=== PATIENT | female | born 1990 | race Caucasian/White ===

== ENCOUNTER 2016-07-08 10:32 | Emergency (ER) | payer MEDICAID ==
[~2016-07-08] VITALS: Ht 149.9 cm; Wt 65.0 kg
[~2016-07-08 10:32] MED LIST: NUVAMIS VAGINAL
[2016-07-08 10:33] VITALS: BP 133/84; PULSE 107; RESP 15; TEMP 98.3; O2SAT 98
--- NOTE | 2016-07-08 11:23 | PD ---
HPI Chief Complaint: Oral / Dental Pain or Problem Time Seen by Provider: 11:23 Travel History International Travel<30 days: No Contact w/Intl Traveler<30days: No Traveled to known affect area: No History of Present Illness HPI 26-year-old female presents to the ED for evaluation at 2 day history of right lower dental pain. Rated 7/10, radiating into the ear, jaw, and shoulder. She endorses subjective fevers. Patient states that she has had this pain off and on secondary to an impacted wisdom tooth but most recent episode began yesterday morning. She denies difficulties opening the mouth, difficulty swallowing her own secretions. She states that she has an appointment with a dentist later this month. PFSH Past Medical History Diminished Hearing: No : 3 Para: 1 Miscarriage: 1 Social History Alcohol Use: Yes (socially) Tobacco Use: Yes (1-2 CIGS PER DAY) Substance Use: No Allergies-Medications (Allergen,Severity, Reaction): Coded Allergies: Percocet (Verified Allergy, Severe, vomit, 06/25/16) Tramadol (Verified Allergy, Intermediate, NAUSEA/VOMITING, 06/25/16) Reported Meds & Prescriptions Reported Meds & Active Scripts Active Menlo (Hydrocodone-Acetaminophen) 5-325 mg Tab 1 Tab PO Q6H PRN Amoxicillin 500 Mg Tab 500 Mg PO BID 7 Days Nuvaring Vaginal Insert (Etonogestrel-Ethinyl Estradiol Vaginal Insert) 0.120- 0.015 Mg/24 Hr Vagring 1 Applic VAGINAL DIRECTED Review of Systems Except as stated in HPI: all other systems reviewed are Neg Physical Exam Narrative GENERAL: Well-nourished, well-developed white female, lying on the bed in no acute distress. SKIN: Warm and dry. No tenderness to palpation over the right neck, right ear or right shoulder. HEAD: Normocephalic. Atraumatic. EYES: No scleral icterus. No injection or drainage. PERRLA. EOMI. ENT: Pear[place] king tympanic membranes bilaterally. Nasal mucosa is moist. Oropharynx without erythema, edema or exudate. Uvula midline. Airway patent. Floor of mouth is soft. DENTAL: No loose or chipped teeth. No malocclusion. No trismus. The gingiva surrounding tooth #31 is erythematous with a subcentimeter vesicular exudate. NECK: Supple, trachea midline. No JVD or lymphadenopathy. CARDIOVASCULAR: Regular rate and rhythm without murmurs, gallops, or rubs. RESPIRATORY: Breath sounds clear and equal bilaterally. No accessory muscle use. GASTROINTESTINAL: Abdomen soft, non-tender, nondistended. + Bowel sounds MUSCULOSKELETAL: No cyanosis, or edema. Ambulatory, moves extremities spontaneously. BACK: No obvious deformity. No CVA tenderness. Data Data Last Documented VS Vital Signs Date Time Temp Pulse Resp B/P Pulse Ox O2 Delivery O2 Flow Rate FiO2 07/08/16 10:33 98.3 107 15 133/84 98 MDM Medical Decision Making Medical Screen Exam Complete: Yes Emergency Medical Condition: Yes Differential Diagnosis Dental caries versus dental abscess versus less likely deep neck space abscess versus other Narrative Course 26-year-old female presents to the ED for evaluation at 2 day history of right lower dental pain. Rated 7/10, radiating into the ear, jaw, and shoulder, accompanied by subjective fevers. Patient attributes this pain to impacted with some tooth. She denies difficulties opening the mouth, difficulty swallowing her own secretions. She states that she has an appointment with a dentist later this month. Vitals reviewed. Patient is tachycardic on on presentation at the triage desk. Physical exam reveals decent dentition overall. The gingiva surrounding tooth #31 is erythematous. There is a subcentimeter vesicular exudate present. No difficulties opening closing the mouth. The floor of the mouth is soft. The airway is patent. Uvula is midline. This is dental abscess. Patient was provided with prescription for amoxicillin 500 mg twice a day 7 days. She is also prescribed a brief course of Menlo which she states she can take without any problems. She is instructed to take the medication as prescribed, follow up with the dentist as planned. She indicated understanding of instructions. She is amenable to plan of care. She is stable and discharged home. Diagnosis Primary Impression: Dental abscess Referrals: Dentist Patient Instructions: Dental Abscess (ED), General Instructions Additional Instructions: Take all antibiotics as prescribed, even if symptoms resolve. Take pain medication as prescribed. Do not operate a vehicle while taking pain medications. Follow-up with the dentist as planned. Return to the ED for any urgent or emergent medical condition. Med/Other Pt SpecificInfo: Prescription(s) given Scripts Hydrocodone-Acetaminophen (Menlo)5-325 mg Tab1 Tab PO Q6H PRN (PAIN) #12 TAB Ref 0 Prov:Pilo Leach MD 07/08/16 Amoxicillin 500 Mg [id number] Mg PO BID 7 Days Ref 0 Prov:Pilo Leach MD 07/08/16 Disposition: 01 DISCHARGE HOME Condition: Stable Prerna Osman Jul 08, 2016 11:23
[2016-07-08] MEDS ORDERED: AMOX500T PO (11:36)
[2016-07-08] MEDS ORDERED: NORC5TAB PO (11:36)
[2016-07-15] MEDS ORDERED: NUVAMIS VAGINAL (11:24)
[2016-07-15] MEDS ORDERED: AUGM875T PO (11:25)
== END 2016-07-08 12:17 | disposition home or self-care (01) ==
LOC: NETRI 10:32
DX: K04.7 Periapical abscess without sinus (principal); F17.210 Nicotine dependence, cigarettes, uncomplicated
CPT/HCPCS: 99283

== ENCOUNTER 2016-10-08 11:00 | Emergency (ER) | payer MEDICAID ==
[~2016-10-08] VITALS: Ht 149.9 cm; Wt 67.2 kg
[~2016-10-08 11:00] MED LIST changes: +AUGM875T PO; +NORC5TAB PO
[2016-10-08 11:08] VITALS: BP 148/76; PULSE 92; RESP 18; TEMP 98.9; O2SAT 99
--- NOTE | 2016-10-08 11:38 | PD ---
HPI Chief Complaint: Oral / Dental Pain or Problem Time Seen by Provider: 11:33 Travel History International Travel<30 days: No Contact w/Intl Traveler<30days: No Traveled to known affect area: No History of Present Illness HPI 26-year-old female presents to the emergency department for evaluation of right ear pain and right lower dental pain. Patient states that she has a bad tooth in her right lower wisdom teeth and it intermittently causes her pain, this recent flareup has been going on for several days. States that there is some swelling and redness around the tooth. States that she has had worsening right ear pain and popping for 2 days. States she has a history of recurrent ear infections. Denies any fever, chills, nausea, vomiting, dizziness, sore throat , cough or cold symptoms, facial swelling, difficulty swallowing. Denies , last menstrual period 3 weeks ago. No other complaints. PFSH Past Medical History Medical History: Denies Significant Hx Diminished Hearing: No ?: Not LMP: 09-15-16 : 3 Para: 1 Miscarriage: 1 Social History Alcohol Use: Yes (socially) Tobacco Use: Yes (1-2 CIGS PER DAY) Substance Use: No Allergies-Medications (Allergen,Severity, Reaction): Coded Allergies: Percocet (Verified Allergy, Severe, vomit, 10/08/16) Tramadol (Verified Allergy, Intermediate, NAUSEA/VOMITING, 10/08/16) Reported Meds & Prescriptions Reported Meds & Active Scripts Active No Active Prescriptions or Reported Medications Review of Systems Except as stated in HPI: all other systems reviewed are Neg Physical Exam Narrative GENERAL: Well-nourished and well-developed pleasant female patient in no acute distress who is nontoxic appearing. SKIN: Warm and dry. HEAD: Normocephalic and atraumatic. No facial swelling. EYES: No injection, drainage, or hyphema noted. PERRLA. EOMI. ENT: No nasal drainage noted. Oropharynx is clear. The left tympanic membranes within normal limits. The right tympanic membrane has purulent effusion and patient has tenderness to palpation of the tragus. Ear canals are within normal limits. DENTAL: Right lower posterior molar tooth #32 with dental caries, teeth #30 and 31 are status post extraction. There is some erythema of the gingiva in this region with tenderness to palpation. No abscess formation, discharge or drainage. NECK: Supple and the trachea is midline. No lymphadenopathy is noted throughout the cervical chains. CARDIOVASCULAR: Regular rate and rhythm. RESPIRATORY: Breath sounds are equal bilaterally with no accessory muscle use, wheezing, rhonchi, or crackles. GASTROINTESTINAL: Abdomen is soft, non-tender, and nondistended. MUSCULOSKELETAL: No obvious deformities, swelling, cyanosis, or ecchymosis is present throughout the upper and lower extremities. Patient has full range of motion without any signs of neurovascular compromise. NEUROLOGICAL: Awake, alert, and oriented. Normal speech and gait. Cranial nerves are grossly intact. Data Data Last Documented VS Vital Signs Date Time Temp Pulse Resp B/P Pulse Ox O2 Delivery O2 Flow Rate FiO2 10/08/16 11:08 98.9 92 18 148/76 99 MDM Medical Decision Making Medical Screen Exam Complete: Yes Emergency Medical Condition: Yes Differential Diagnosis Dental infection versus dental caries versus gingivitis versus otitis media Narrative Course 26-year-old female presents to the emergency department for evaluation of dental pain and ear pain. Patient is afebrile, vital signs are stable. She has a mild ear infection and slight dental infection as well. Patient will be placed on amoxicillin. Advised to follow up as an outpatient with her primary care and with her dentist. Patient verbalizes understanding and agreement with treatment plan. Diagnosis Primary Impression: Otitis media Qualified Code: H65.04 - Recurrent acute serous otitis media of right ear Additional Impression: Dental infection Referrals: Dentist Primary Care Physician Patient Instructions: General Instructions Additional Instructions: Take [id number] Claritin. Take medication as prescribed with food and a full glass of water. Follow-up with your Primary Care Physician. Return to the ED for any acute worsening of symptoms. Med/Other Pt SpecificInfo: Prescription(s) given Scripts No Active Prescriptions or Reported Meds Disposition: DISCHARGE HOME Condition: Stable Maribell Morales October 08, 2016 11:38
[2016-10-08] MEDS ORDERED: AMOX875T2 PO (11:39)
== END 2016-10-08 12:20 | disposition home or self-care (01) ==
LOC: PHEFT 11:00
DX: H65.04 Acute serous otitis media, recurrent, right ear (principal); K04.7 Periapical abscess without sinus; Z72.0 Tobacco use
CPT/HCPCS: 99282

== ENCOUNTER 2016-11-04 08:56 | Emergency (ER) | payer MEDICAID ==
[~2016-11-04] VITALS: Ht 149.9 cm; Wt 65.5 kg
[~2016-11-04 08:56] MED LIST changes: +AMOX875T2 PO; -AUGM875T PO; -NORC5TAB PO; -NUVAMIS VAGINAL
[2016-11-04 09:03] VITALS: BP 116/79; PULSE 105; RESP 16; TEMP 98.4; O2SAT 99
[2016-11-04] MEDS ORDERED: SODIUM CHLOR 0.9% 1000 ML INJ 1,000 ML IV SCH (09:18)
[2016-11-04] MEDS ORDERED: LIDOCAINE VISCOUS 2% SOLN 15 ML UDC PO ONE (09:30)
[2016-11-04] MEDS ORDERED: SODIUM CHLOR 0.9% 1000 ML INJ 1,000 ML IV ONE (09:30)
[2016-11-04] MEDS ORDERED: ALUMINUM/MAGNESIUM/SIMETH 30 ML CUP PO ONE (09:30)
[2016-11-04] MEDS ORDERED: SODIUM CHLORIDE 0.9% FLUSH 10 ML FLUSH IV FLUSH PRN (09:30)
[2016-11-04] MEDS ORDERED: ONDANSETRON HCL 4 MG/2 ML VIAL IVP ONE (09:30)
--- NOTE | 2016-11-04 09:32 | PD ---
HPI Chief Complaint: GI Complaint Time Seen by Provider: 09:10 Travel History International Travel<30 days: No Contact w/Intl Traveler<30days: No Traveled to known affect area: No History of Present Illness HPI This is a 26-year-old female 4 para 3 last menstruation just over 10 weeks prior arrives complaining of nausea and vomiting for about 1 day. No diarrhea. She reports this happens fairly frequently for her and is typically accompanied by dehydration. She was unable to work today on account of the nausea and vomiting. Any eating or drinking causes vomiting, including drinking water. She last ate pizza and milk before her symptoms began. She has had no fever. She describes a generalized cramping abdominal sensation. She notes she is however has yet to follow up with Dr Hay of obstetrics. She denies vaginal bleeding/discharge. She has no urinary frequency dysuria. Her son has similar symptoms. PFSH Past Medical History Medical History: Denies Significant Hx Diminished Hearing: No Migraines: Yes Tetanus Vaccination: > 5 Years Influenza Vaccination: No ?: LMP: 08/15/16 : 4 Para: 3 Miscarriage: 0 : 0 Past Surgical History Surgical History: No Previous Surgery Social History Alcohol Use: No Tobacco Use: No Substance Use: No Allergies-Medications (Allergen,Severity, Reaction): Coded Allergies: Percocet (Verified Allergy, Severe, vomit, 11/04/16) Tramadol (Verified Allergy, Intermediate, NAUSEA/VOMITING, 11/04/16) Reported Meds & Prescriptions Reported Meds & Active Scripts Active Macrobid (Nitrofurantoin Monohydrate Macrocrystals) 100 Mg Capsule 100 Mg PO BID 5 Days Plus Iron 29-1 mg ( Vit-Iron Carbonyl) 1 Tab Tab 1 Tab PO DAILY Zofran Odt (Ondansetron Odt) 4 Mg Tab 4 Mg SL Q8HR PRN Review of Systems Except as stated in HPI: all other systems reviewed are Neg General / Constitutional: No: Fever Physical Exam Narrative GENERAL: 26-year-old female pleasant well-nourished well-developed mild distress SKIN: Focused skin assessment warm/dry. HEAD: Atraumatic. Normocephalic. EYES: Pupils equal and round. No scleral icterus. No injection or drainage. ENT: No nasal bleeding or discharge. Mucous membranes pink and moist. NECK: Trachea midline. No JVD. CARDIOVASCULAR: Regular rate and rhythm. No murmur appreciated. RESPIRATORY: No accessory muscle use. Clear to auscultation. Breath sounds equal bilaterally. GASTROINTESTINAL: Soft. No focus of abdominal tenderness. MUSCULOSKELETAL: No obvious deformities. No clubbing. No cyanosis. No edema. NEUROLOGICAL: Awake and alert. No obvious cranial nerve deficits. Motor grossly within normal limits. Normal speech. PSYCHIATRIC: Appropriate mood and affect; insight and judgment normal. Data Data Last Documented VS Vital Signs Date Time Temp Pulse Resp B/P Pulse Ox O2 Delivery O2 Flow Rate FiO2 11/04/16 09:53 100 Room Air 11/04/16 09:03 98.4 105 16 116/79 Vital signs reviewed Orders Urinalysis - C+S If Indicated (11/04/16 09:18) Iv Access Insert/Monitor (11/04/16 09:18) Ecg Monitoring (11/04/16 09:18) Oximetry (11/04/16 09:18) Ondansetron Inj (Zofran Inj) (11/04/16 09:30) Sodium Chlor 0.9% 1000 Ml Inj (Ns 1000 M (11/04/16 09:18) Sodium Chloride 0.9% Flush (Ns Flush) (11/04/16 09:30) Al-Mag Hy-Si 40-40-4 Mg/Ml Liq (Mag-Al P (11/04/16 09:30) Lidocaine 2% Viscous (Xylocaine 2% Visco (11/04/16 09:30) Ed Urine Pregnancytest Poc (11/04/16 09:18) Sodium Chlor 0.9% 1000 Ml Inj (Ns 1000 M (11/04/16 09:30) Ed Poc Ultrasound (11/04/16 ) Beta Hcg (Quant/Titer) (11/04/16 09:32) Urine Culture (11/04/16 09:45) Labs Laboratory Tests Test 11/04/16 09:45 Urine Collection Type CLEAN CATCH Urine Color YELLOW Urine Turbidity CLEAR Urine pH 6.0 Urine Specific [place] 1.026 Urine Protein 30 mg/dL Urine Glucose (UA) NEG mg/dL Urine Ketones 80 OR GREATER mg/dL Urine Occult Blood NEG Urine Nitrite NEG Urine Bilirubin NEG Urine Leukocyte Esterase NEG Urine WBC 0-2 /hpf Urine Squamous Epithelial > 8 /hpf Cells Urine Bacteria MOD /hpf Urine Mucus FEW /lpf Microscopic Urinalysis Comment CULTURE INDICATED Urine Collection Time 09:45 Human Chorionic Gonadotropin, [address] MIU/ML Quant MDM Medical Decision Making Medical Screen Exam Complete: Yes Emergency Medical Condition: Yes Medical Record Reviewed: Yes Differential Diagnosis Constipation, Gastritis, Acute Cholecystitis, Biliary Colic, Pancreatitis, DSOUZA , Hepatitis, Bowel Obstruction, Cystitis, Mesenteric Ischemia, AAA, Appendicitis , Renal Stone/Hydronephrosis, GERD, perforated viscous Narrative Course Urinalysis reveals ketonuria area with bacteriuria Beta 56,489 The patient is resting comfortably and feels better, is alert and in no distress. The patients results and examination findings were discussed. The repeat examination is unremarkable and benign. The history, exam, diagnostic testing, and current condition do not suggest any significant pathology to warrant further testing, continued ED treatment, admission, or surgical evaluation at this point. The vital signs have been stable. The patient does not have uncontrollable pain, intractable vomiting, or other significant symptoms. The patient's condition is stable and appropriate for discharge. The patient will pursue further outpatient evaluation with a primary care physician or other designated or consulting physician as indicated in the discharge instructions. The patient expressed understanding and was agreeable with this plan. Diagnosis Primary Impression: Nausea & vomiting Qualified Code: R11.2 - Intractable vomiting with nausea, unspecified vomiting type Additional Impressions: IUP (intrauterine ), incidental Asymptomatic bacteriuria Referrals: [facility] 2 days Additional Instructions: You have a choice when it comes to health care, and we are glad that you chose [facility]. Hopefully, we have met your expectations on today's visit. You are welcome to return to [facility] at any time, as we are committed to meeting the health care needs of our community. Med/Other Pt SpecificInfo: Prescription(s) given Scripts Nitrofurantoin Monohydrate Macrocrystals (Macrobid)100 Mg [id number] Mg PO BID 5 Days Ref 0 Prov:Checo Juan MD 11/04/16 Vit-Iron Carbonyl ( Plus Iron 29-1 mg)1 Tab Tab1 Tab PO DAILY #90 TAB Ref 3 Prov:Checo Juan MD 11/04/16 Ondansetron Odt (Zofran Odt)4 Mg Tab4 Mg SL Q8HR PRN (Nausea/Vomiting) #10 TAB Ref 0 Prov:Checo Juan MD 11/04/16 Disposition: 01 DISCHARGE HOME Condition: Stable hCeco Juan MD November 04, 2016 09:32
[2016-11-04 09:53] VITALS: O2SAT 100
[2016-11-04 09:55] LABS: BLOOD, URINE NEG (NEG); GLUCOSE,URINE NEG (NEG); NITRITE,URINE NEG (NEG)
[2016-11-04 10:04] LABS: KETONE, URINE 80 OR GREATER mg/dL (NEG); METHOD OF COLLECTION CLEAN CATCH; SQUAMOUS EPITHELIAL CELL URINE > 8 /hpf (0-5); URINE COLOR YELLOW (YELLW/STRAW); WBC, URINE 0-2 /hpf (0-5)
[2016-11-04 10:05] LABS: BACTERIA, URINE MOD /hpf; MUCUS URINE FEW /lpf (OCC)
[2016-11-04 10:08] LABS: COMMENT (UR) CULTURE INDICATED; CULTURE IF INDICATED CULTURE INDICATED
[2016-11-04] MEDS ORDERED: ZOFR4TAB3 SL (10:10)
[2016-11-04] MEDS ORDERED: PREN29TA PO (10:11)
[2016-11-04 10:26] LABS: BETA HCG QUANT 56489 MIU/ML (0-5)
[2016-11-04] MEDS ORDERED: MACR100C2 PO (10:37)
[2016-11-04 11:40] VITALS: BP 118/74
== END 2016-11-04 11:50 | disposition home or self-care (01) ==
LOC: PHED 08:56
DX: O21.9 Vomiting of pregnancy, unspecified (principal); R82.71 Bacteriuria; Z34.81 Encounter for supervision of other normal pregnancy, first trimester
CPT/HCPCS: 81001; 84702; 84703; 87086; 96361; 96374; 99284; J2405; J7030

== ENCOUNTER 2017-03-12 11:39 | Emergency (ER) | payer MEDICAID ==
[~2017-03-12] VITALS: Ht 149.9 cm; Wt 70.9 kg
[~2017-03-12 11:39] MED LIST changes: -AMOX875T2 PO; +MACR100C2 PO; +PREN29TA PO; +ZOFR4TAB3 SL
[2017-03-12 11:43] VITALS: BP 129/60; PULSE 109; RESP 18; TEMP 98
--- NOTE | 2017-03-12 12:03 | PD ---
HPI Chief Complaint: GI Complaint Time Seen by Provider: 11:52 Travel History International Travel<30 days: No Contact w/Intl Traveler<30days: No Traveled to known affect area: No History of Present Illness HPI here at 32 weeks GA presents to the er with N/V/D since last night. Also complaints of BEEBE bifrontal which is mild. Endorses diffuse abdominal pain as well but she states she cannot differentiate between the pain and the baby kicking. She continues to smoke during . States symptoms are moderate , waxing and waning. PFSH Past Medical History Diminished Hearing: No Migraines: Yes ?: LMP: jul 18 : 4 Para: 3 Miscarriage: 0 : 0 Social History Alcohol Use: No Tobacco Use: No Substance Use: No Allergies-Medications (Allergen,Severity, Reaction): Coded Allergies: acetaminophen (Unverified Allergy, Severe, vomit, 03/12/17) oxycodone (Unverified Allergy, Severe, vomit, 03/12/17) tramadol (Unverified Allergy, Intermediate, NAUSEA/VOMITING, 03/12/17) Reported Meds & Prescriptions Reported Meds & Active Scripts Active Plus Iron 29-1 mg ( Vit-Iron Carbonyl) 1 Tab Tab 1 Tab PO DAILY Review of Systems Except as stated in HPI: all other systems reviewed are Neg Physical Exam Narrative GENERAL: Well-developed well-nourished in no obvious distress. SKIN: Focused skin assessment warm/dry. HEAD: Atraumatic. Normocephalic. EYES: Pupils equal and round. No scleral icterus. No injection or drainage. ENT: No nasal bleeding or discharge. Mucous membranes pink and moist. NECK: Trachea midline. No JVD. CARDIOVASCULAR: Regular rate and rhythm. No murmur appreciated. RESPIRATORY: No accessory muscle use. Clear to auscultation. Breath sounds equal bilaterally. GASTROINTESTINAL: Abdomen soft, non-tender, gravid abdomen. Hepatic and splenic margins not palpable. No rebound or percussive tenderness. No CVA tenderness. MUSCULOSKELETAL: No obvious deformities. No clubbing. No cyanosis. No edema. NEUROLOGICAL: Awake and alert. No obvious cranial nerve deficits. Motor grossly within normal limits. Normal speech. PSYCHIATRIC: Appropriate mood and affect; insight and judgment normal. Data Data Last Documented VS Vital Signs Date Time Temp Pulse Resp B/P (MAP) Pulse Ox O2 Delivery O2 Flow Rate FiO2 03/12/17 14:58 102 20 99/58 (72) 94 03/12/17 11:43 98.0 Orders Orders Ed Poc Ultrasound (03/12/17 ) Complete Blood Count With Diff (03/12/17 12:06) Comprehensive Metabolic Panel (03/12/17 12:06) Lipase (03/12/17 12:06) Iv Access Insert/Monitor (03/12/17 12:06) Ecg Monitoring (03/12/17 12:06) Oximetry (03/12/17 12:06) Sodium Chloride 0.9% Flush (Ns Flush) (03/12/17 12:15) Acetaminophen (Tylenol) (03/12/17 12:15) Ondansetron Inj (Zofran Inj) (03/12/17 12:15) Sodium Chlor 0.9% 1000 Ml Inj (Ns 1000 M (03/12/17 12:15) Urinalysis - C+S If Indicated (03/12/17 12:28) Labs Laboratory Tests Test 03/12/17 12:15 03/12/17 13:20 White Blood Count 9.8 TH/MM3 Red Blood Count 3.36 MIL/MM3 Hemoglobin 10.1 GM/DL Hematocrit 29.2 % Mean Corpuscular Volume 86.9 FL Mean Corpuscular Hemoglobin 29.9 PG Mean Corpuscular Hemoglobin Concent 34.4 % Red Cell Distribution Width 11.9 % Platelet Count 243 TH/MM3 Mean Platelet Volume 7.6 FL Neutrophils (%) (Auto) 75.9 % Lymphocytes (%) (Auto) 15.1 % Monocytes (%) (Auto) 6.6 % Eosinophils (%) (Auto) 0.6 % Basophils (%) (Auto) 1.8 % Neutrophils # (Auto) 7.4 TH/MM3 Lymphocytes # (Auto) 1.5 TH/MM3 Monocytes # (Auto) 0.6 TH/MM3 Eosinophils # (Auto) 0.1 TH/MM3 Basophils # (Auto) 0.2 TH/MM3 CBC Comment DIFF FINAL Differential Comment Blood Urea Nitrogen 6 MG/DL Creatinine 0.29 MG/DL Random Glucose 114 MG/DL Total Protein 6.1 GM/DL Albumin 2.6 GM/DL Calcium Level 8.1 MG/DL Alkaline Phosphatase 75 U/L Aspartate Amino Transf (AST/SGOT) 16 U/L Alanine Aminotransferase (ALT/SGPT) 20 U/L Total Bilirubin 0.3 MG/DL Sodium Level 136 MEQ/L Potassium Level 3.3 MEQ/L Chloride Level 104 MEQ/L Carbon Dioxide Level 21.4 MEQ/L Anion Gap 11 MEQ/L Estimat Glomerular Filtration Rate 280 ML/MIN Lipase 93 U/L Urine Collection Type CLEAN CATCH Urine Color YELLOW Urine Turbidity CLEAR Urine pH 6.5 Urine Specific [place] 1.005 Urine Protein NEG mg/dL Urine Glucose (UA) NEG mg/dL Urine Ketones NEG mg/dL Urine Occult Blood NEG Urine Nitrite NEG Urine Bilirubin NEG Urine Leukocyte Esterase NEG Urine Squamous Epithelial Cells 0-5 /hpf Microscopic Urinalysis Comment CULT NOT INDICATED MDM Medical Decision Making Medical Screen Exam Complete: Yes Emergency Medical Condition: Yes Differential Diagnosis Headache, preeclampsia, dehydration, gastroenteritis, labor. Narrative Course Patient workup in the emergency department, labs UA negative. Given normal saline, Zofran, given nondescript pain recommended for an STD, discussed with the OB hospitalist Dr. Riggins who accepts to OB ED for consideration of NST. Procedures Procedure Narrative Bedside ultrasound abdomen: Ultrasound consistent with a 29 week gestational age single intrauterine , heart tones to 154 by M-mode. No gross abnormality seen. Positive motion. Diagnosis Primary Impression: Abdominal pain affecting Disposition: 70 TRANSFER TO OTHER FACILITY Condition: Stable Vamshi Campbell MD Mar 12, 2017 12:03
[2017-03-12] MEDS ORDERED: ACETAMINOPHEN 500 MG CPLT PO ONE (12:15)
[2017-03-12] MEDS ORDERED: SODIUM CHLORIDE 0.9% FLUSH 10 ML FLUSH IV FLUSH PRN (12:15)
[2017-03-12] MEDS ORDERED: SODIUM CHLOR 0.9% 1000 ML INJ 1,000 ML IV ONE (12:15)
[2017-03-12] MEDS ORDERED: ONDANSETRON HCL 4 MG/2 ML VIAL IV PUSH ONE (12:15)
[2017-03-12 12:18] VITALS: O2SAT 96
[2017-03-12 12:24] VITALS: BP 107/71; PULSE 95; RESP 20; O2SAT 97
[2017-03-12 12:24] LABS: AUTOMATED NEUTROPHIL # 7.4 TH/MM3 (1.8-7.7); BASOPHIL # 0.2 TH/MM3 (0-0.2); BASOPHIL % 1.8 % (0.0-2.0); EOSINOPHIL # 0.1 TH/MM3 (0-0.4); EOSINOPHIL % 0.6 % (0.0-4.0); HEMATOCRIT 29.2 % (35.0-46.0); LYMPH % 15.1 % (9.0-44.0); LYMPHOCYTE # 1.5 TH/MM3 (1.0-4.8); MEAN CELL VOLUME 86.9 FL (80.0-100.0); MEAN CORPUSCULAR HEMOGLOBIN 29.9 PG (27.0-34.0); MEAN CORPUSCULAR HGB CONC 34.4 % (32.0-36.0); MONO % 6.6 % (0.0-8.0); NEUT % 75.9 % (16.0-70.0); PLATELET COUNT 243 TH/MM3 (150-450); RED BLOOD COUNT 3.36 MIL/MM3 (4.00-5.30); RED CELL DISTRIBUTION WIDTH 11.9 % (11.6-17.2); WHITE BLOOD COUNT 9.8 TH/MM3 (4.0-11.0)
[2017-03-12 12:27] LABS: HEMO FLAGS DIFF FINAL
[2017-03-12 12:40] LABS: CHLORIDE 104 MEQ/L (98-107); POTASSIUM 3.3 MEQ/L (3.5-5.1); SODIUM (NA) 136 MEQ/L (136-145)
[2017-03-12 12:44] LABS: ANION GAP 11 MEQ/L (5-15); BICARBONATE 21.4 MEQ/L (21.0-32.0); BLOOD UREA NITROGEN 6 MG/DL (7-18)
[2017-03-12 12:47] LABS: ALT (GPT) 20 U/L (10-53); AST (GOT) 16 U/L (15-37); GLOMERULAR FILTRATION RATE 280 ML/MIN (>89)
[2017-03-12 12:48] LABS: TOTAL BILIRUBIN ADULT 0.3 MG/DL (0.2-1.0)
[2017-03-12 12:50] LABS: ALKALINE PHOSPHATASE 75 U/L (45-117)
[2017-03-12 13:19] VITALS: BP 116/51; PULSE 75; RESP 20; O2SAT 100
[2017-03-12 13:28] LABS: BLOOD, URINE NEG (NEG); GLUCOSE,URINE NEG (NEG); KETONE, URINE NEG (NEG); NITRITE,URINE NEG (NEG); PH, URINE 6.5 (5.0-8.5)
[2017-03-12 13:38] LABS: COMMENT (UR) CULT NOT INDICATED; CULTURE IF INDICATED CULT NOT INDICATED; METHOD OF COLLECTION CLEAN CATCH; SQUAMOUS EPITHELIAL CELL URINE 0-5 /hpf (0-5); URINE COLOR YELLOW (YELLW/STRAW)
[2017-03-12 14:58] VITALS: BP 99/58; PULSE 102; RESP 20; O2SAT 94
--- NOTE | 2017-03-12 17:49 | PD ---
HPI Chief Complaint nausea, vomiting diarrhea 1 day 32 week IUP Date Seen: Mar 12, 2017 Time Seen: 17:15 Travel History International Travel<30 Days: No Contact w/Intl Traveler<30Days: No Known Affected Area: No History of Present Illness HPI Pt is a 27 yo who presents at 29 weeks and 6 days. She reports nausea and vomiting with diarrhea starting last night. Pt receives care with Dr Paolo Cao at [facility]. previously uncomplicated. Denies headache, or vision changes. No proteinuria noted in ER. She was seen in ER at [place], today with these complaints. She reports active movements. No fevers, or chills. No vaginal bleeding or leaking. Weeks Gestation: 29 Para: 3 : 4 History Past Medical History Medical History: Denies Significant Hx Obstetric History Obstetric History 3 uncomplicated term vaginal deliveries. Past Surgical History Surgical History: No Previous Surgery Social History Alcohol Use: No Tobacco Use: Yes (1/2 PPD) Substance Abuse: No Allergies-Medications (Allergen,Severity, Reaction): Coded Allergies: acetaminophen (Unverified Allergy, Severe, vomit, 03/12/17) oxycodone (Unverified Allergy, Severe, vomit, 03/12/17) tramadol (Unverified Allergy, Intermediate, NAUSEA/VOMITING, 03/12/17) Home Meds Active Scripts Vit-Iron Carbonyl ( Plus Iron 29-1 mg) 1 Tab Tab, 1 TAB PO DAILY for Nutritional Supplement, #90 TAB 3 Refills Prov:Checo Juan MD 11/04/16 Discontinued Scripts Nitrofurantoin Monohydrate Macrocrystals (Macrobid) 100 Mg Capsule, 100 MG PO BID for Infection for 5 Days, CAP 0 Refills Prov:Checo Juan MD 11/04/16 Ondansetron Odt (Zofran Odt) 4 Mg Tab, 4 MG SL Q8HR Y for Nausea/Vomiting, #10 TAB 0 Refills Prov:Checo Juan MD 11/04/16 Review of Systems Except as stated in HPI: all other systems reviewed are Neg Physical Exam Vital Signs Date Time Temp Pulse Resp B/P (MAP) Pulse Ox O2 Delivery O2 Flow Rate FiO2 03/12/17 14:58 102 20 99/58 (72) 94 03/12/17 13:19 75 20 116/51 (72) 100 03/12/17 12:24 95 20 107/71 (83) 97 03/12/17 12:18 96 03/12/17 11:43 98.0 109 18 129/60 (83) Narrative GENERAL: Well-nourished, well-developed patient. SKIN: Warm and dry. HEAD: Normocephalic and atraumatic. EYES: No scleral icterus. No injection or drainage. ENT: No nasal drainage noted. Mucous membranes pink. Airway patent. NECK: Supple, trachea midline. No JVD. CARDIOVASCULAR: Regular rate and rhythm without murmurs, gallops, or rubs. RESPIRATORY: Breath sounds equal bilaterally. No accessory muscle use. BREASTS: Bilateral exam showed no masses , no retractions, no nipple discharge. ABDOMEN/GI: Abdomen soft, non-tender, bowel sounds present, no rebound, no guarding Gravid to [30] weeks size Fundal Height: [30cm-] GENITOURINARY: External Genitalia: intact and normal in appearance BUS glands: [-] Cervix: [-] not examined Dilatation: [-] Effacement: [-] Station: [-] Presentation: [-] Membranes: [intact or ruptured] Uterine Contractions: [-] FHT's: Category: [1] Baseline: [130s-] Reactive: [YES-] Variability: [moderate-] Decels: [none] EXTREMITIES: No cyanosis or edema. BACK: Nontender without obvious deformity. No CVA tenderness. NEUROLOGICAL: Awake and alert. Motor and sensory grossly within normal limits. Five out of 5 muscle strength in all muscle groups. Normal speech. Data Data Vital Signs Reviewed: Yes Orders Orders Ed Poc Ultrasound (03/12/17 ) Complete Blood Count With Diff (03/12/17 12:06) Comprehensive Metabolic Panel (03/12/17 12:06) Lipase (03/12/17 12:06) Iv Access Insert/Monitor (03/12/17 12:06) Ecg Monitoring (03/12/17 12:06) Oximetry (03/12/17 12:06) Sodium Chloride 0.9% Flush (Ns Flush) (03/12/17 12:15) Acetaminophen (Tylenol) (03/12/17 12:15) Ondansetron Inj (Zofran Inj) (03/12/17 12:15) Sodium Chlor 0.9% 1000 Ml Inj (Ns 1000 M (03/12/17 12:15) Urinalysis - C+S If Indicated (03/12/17 12:28) Group B Strep: Negative Labs Laboratory Tests Test 03/12/17 12:15 03/12/17 13:20 White Blood Count 9.8 Red Blood Count 3.36 Hemoglobin 10.1 Hematocrit 29.2 Mean Corpuscular Volume 86.9 Mean Corpuscular Hemoglobin 29.9 Mean Corpuscular Hemoglobin Concent 34.4 Red Cell Distribution Width 11.9 Platelet Count 243 Mean Platelet Volume 7.6 Neutrophils (%) (Auto) 75.9 Lymphocytes (%) (Auto) 15.1 Monocytes (%) (Auto) 6.6 Eosinophils (%) (Auto) 0.6 Basophils (%) (Auto) 1.8 Neutrophils # (Auto) 7.4 Lymphocytes # (Auto) 1.5 Monocytes # (Auto) 0.6 Eosinophils # (Auto) 0.1 Basophils # (Auto) 0.2 CBC Comment DIFF FINAL Differential Comment Blood Urea Nitrogen 6 Creatinine 0.29 Random Glucose 114 Total Protein 6.1 Albumin 2.6 Calcium Level 8.1 Alkaline Phosphatase 75 Aspartate Amino Transf (AST/SGOT) 16 Alanine Aminotransferase (ALT/SGPT) 20 Total Bilirubin 0.3 Sodium Level 136 Potassium Level 3.3 Chloride Level 104 Carbon Dioxide Level 21.4 Anion Gap 11 Estimat Glomerular Filtration Rate 280 Lipase 93 Urine Collection Type CLEAN CATCH Urine Color YELLOW Urine Turbidity CLEAR Urine pH 6.5 Urine Specific [place] 1.005 Urine Protein NEG Urine Glucose (UA) NEG Urine Ketones NEG Urine Occult Blood NEG Urine Nitrite NEG Urine Bilirubin NEG Urine Leukocyte Esterase NEG Urine Squamous Epithelial Cells 0-5 Microscopic Urinalysis Comment CULT NOT INDICATED MDM Medical Record Reviewed: Yes Plan Likely gastroenteritis. Received IV Zofran at [place] ER. Reports feeling much better. No vomiting here Diagnosis Diagnosis: Primary Impression: 30 weeks gestation of Additional Impression: Gastroenteritis Disposition: 01 DISCHARGE HOME Condition: Good Evans Riggins MD Mar 12, 2017 17:49
== END 2017-03-12 18:17 | disposition home or self-care (01) ==
LOC: PHED 11:39 → HOBED 18:17
DX: O26.893 Other specified pregnancy related conditions, third trimester (principal); K52.9 Noninfective gastroenteritis and colitis, unspecified; O99.333 Smoking (tobacco) complicating pregnancy, third trimester; Z3A.29 29 weeks gestation of pregnancy; Z88.6 Allergy status to analgesic agent; Z88.5 Allergy status to narcotic agent; Z79.899 Other long term (current) drug therapy
CPT/HCPCS: 80053; 81001; 83690; 85025; 96374; 99285; J2405; J7030; 99281

== ENCOUNTER 2017-04-08 15:30 | Emergency (ER) | payer MEDICAID ==
[~2017-04-08] VITALS: Ht 149.9 cm; Wt 71.2 kg
[~2017-04-08 15:30] MED LIST changes: -MACR100C2 PO; -ZOFR4TAB3 SL
[2017-04-08 16:05] VITALS: BP 122/60; PULSE 103; RESP 18; TEMP 97.9; O2SAT 97
[2017-04-08 16:17] VITALS: BP 122/60; PULSE 103; RESP 16
[2017-04-08] MEDS ORDERED: AMOX875T PO (16:32)
--- NOTE | 2017-04-08 16:37 | PD ---
HPI Chief Complaint: Cold / Flu Symptoms Time Seen by Provider: 16:26 Travel History International Travel<30 days: No Contact w/Intl Traveler<30days: No Traveled to known affect area: No History of Present Illness HPI 27-year-old 34 weeks gestational age presents with cough, congestion, sinus pressure. Symptoms started 5 days ago. The cough is productive with green sputum production. Her daughter has had similar symptoms. She denies fevers, chills, shortness of breath. She has no other complaints at this time. [facility] Past Medical History Diminished Hearing: No Headaches: Yes Migraines: Yes Tetanus Vaccination: < 5 Years Influenza Vaccination: No ?: LMP: 08/2016 : 4 Para: 3 Miscarriage: 0 : 0 Past Surgical History Surgical History: No Previous Surgery Social History Alcohol Use: No Tobacco Use: Yes (06/08 PPD) Substance Use: No Allergies-Medications (Allergen,Severity, Reaction): Coded Allergies: acetaminophen (Unverified Allergy, Severe, vomit, 04/08/17) oxycodone (Unverified Allergy, Severe, vomit, 04/08/17) tramadol (Unverified Allergy, Intermediate, NAUSEA/VOMITING, 04/08/17) Reported Meds & Prescriptions Reported Meds & Active Scripts Active Amoxicillin 875 Mg Tab 875 Mg PO BID 10 Days Plus Iron 29-1 mg ( Vit-Iron Carbonyl) 1 Tab Tab 1 Tab PO DAILY Review of Systems Except as stated in HPI: all other systems reviewed are Neg Physical Exam Narrative GENERAL: Well-nourished female in no acute distress SKIN: Warm and dry. HEAD: Atraumatic. Normocephalic. EYES: Pupils equal and round. No scleral icterus. No injection or drainage. ENT: No nasal bleeding or discharge. Mucous membranes pink and moist. Tender to palpation over the maxillary sinuses. NECK: Trachea midline. No JVD. CARDIOVASCULAR: Regular rate and rhythm. No murmur appreciated. RESPIRATORY: No accessory muscle use. Clear to auscultation. Breath sounds equal bilaterally. GASTROINTESTINAL: Abdomen soft, non-tender, gravid abdomen. MUSCULOSKELETAL: No obvious deformities. No clubbing. No cyanosis. No edema. NEUROLOGICAL: Awake and alert. No obvious cranial nerve deficits. Motor grossly within normal limits. Normal speech. PSYCHIATRIC: Appropriate mood and affect; insight and judgment normal. Data Data Last Documented VS Vital Signs Date Time Temp Pulse Resp B/P (MAP) Pulse Ox O2 Delivery O2 Flow Rate FiO2 04/08/17 16:17 103 16 122/60 (80) 04/08/17 16:05 97.9 97 Room Air MDM Medical Decision Making Medical Screen Exam Complete: Yes Emergency Medical Condition: Yes Medical Record Reviewed: Yes Differential Diagnosis Sinusitis, bronchitis, influenza, pneumonia Narrative Course Examination is consistent with sinusitis. She is being discharged with amoxicillin which is category B. Diagnosis Primary Impression: Acute sinusitis Additional Instructions: Medication as prescribed. Stay well hydrated well-nourished. Follow-up with primary care physician as needed. Return for any emergent medical conditions. Med/Other Pt SpecificInfo: Prescription(s) given Scripts Amoxicillin (Amoxicillin) 875 Mg Tab 875 MG PO BID for Infection for 10 Days, #20 TAB 0 Refills Prov: Gamaliel Mcleod MD 04/08/17 Disposition: 01 DISCHARGE HOME Condition: Stable Abdifatah Aviles Apr 08, 2017 16:37
== END 2017-04-08 16:58 | disposition home or self-care (01) ==
LOC: PHEFT 15:30
DX: O99.513 Diseases of the respiratory system complicating pregnancy, third trimester (principal); J01.90 Acute sinusitis, unspecified; O99.333 Smoking (tobacco) complicating pregnancy, third trimester; F17.200 Nicotine dependence, unspecified, uncomplicated; Z3A.34 34 weeks gestation of pregnancy
CPT/HCPCS: 99283